=== PATIENT | female | born 1980 | race Caucasian/White ===

== ENCOUNTER 2021-10-20 15:34 | Emergency (ER) | payer BC, OTHER, SELFPAY ==
--- NOTE | 2021-10-20 15:38 | ED.SKABFB ---
HPI - Skin/Abscess/Foreign Bdy General Chief complaint: Skin/Abscess/Foreign Body Stated complaint: poison cyndi or poison oak Time Seen by Provider: 10/20/21 15:38 Source: patient, family and RN notes reviewed Mode of arrival: ambulatory Limitations: no limitations History of Present Illness HPI narrative: patient was out picking grapes yesterday. She feels that she may have gotten into some poison cyndi. complaint: rash Onset (ago): day(s) (1) Location: LUE, RUE, LLE and RLE Severity: moderate Quality: burning and pruritic Pain Consistency: constant Relieving factors: none Exacerbating factors: none Associated symptoms: denies other symptoms Treatments prior to arrival: none Related Data Allergies Allergy/AdvReac Type Severity Reaction Status Date / Time No Known Allergies Allergy Verified 10/20/21 15:42 Review of Systems Review of Systems: All systems reviewed & are unremarkable except as noted in HPI and below PMFSH Past Medical History Medical History (Updated 10/20/21 @ 15:55 by Jayden Head MD) No active medical problems Surgical History Surgical History (Updated 10/20/21 @ 15:55 by Jayden Head MD) History of section Social History Social History (Updated 10/20/21 @ 15:55 by Jayden Head MD) Smoking packs per day: 0.5 Smoking cigarettes per day: 10.0 Smoking status: Current every day smoker Tobacco type: cigarettes Exam Const: General: healthy appearing, no acute distress and alert Nutritional Appearance: well nourished Orientation/consciousness: patient oriented x3 Other: Female nurse in room during examination. HENMT: Head: normal to inspection Ears: external ears normal Eyes: Conjunctivae: conjunctivae normal Pupils: Equal, round and reactive pupils present EOM: EOMs intact bilaterally Neck: Neck: normal visual inspection Resp: Effort & Inspection: normal respiratory effort Auscultation: clear to auscultation bilaterally Cardio: Rate: regular rate Rhythm: regular rhythm GI: Auscultation: normal bowel sounds Back/Spine/Pelvis: Cervical Spine: cervical ROM normal Thoracic/Lumbar Spine: thoraco-lumbar ROM normal Skin: General skin exam: normal color Rashes: rashes noted ( areas on bilateral forearms bilateral upper shins) maculopapular rash bilateral multiple locations arrangement linear, borders sharp, morphology linear and surface erythematous; nontender Neuro: General: patient oriented x3, moves all extremities, no focal motor deficits and CN's II-XI intact bilaterally Speech: normal speech Gait exam (Neuro): Normal gait present Extrem: General: normal to inspection Psych: Mental Status: mental status grossly normal Affect: normal affect Attitude: cooperative Course Vital Signs Vital signs: Vital Signs Temperature 36.1 C L 10/20/21 15:43 Pulse Rate 82 10/20/21 15:43 Respiratory Rate 16 10/20/21 15:43 Blood Pressure 122/80 10/20/21 15:43 Pulse Oximetry 99 10/20/21 15:43 Oxygen Delivery Room Air 10/20/21 15:43 Temperature 36.1 C L 10/20/21 15:43 Pulse Rate 82 10/20/21 15:43 Respiratory Rate 16 10/20/21 15:43 Blood Pressure 122/80 10/20/21 15:43 Pulse Oximetry 99 10/20/21 15:43 Oxygen Delivery Room Air 10/20/21 15:43 Discharge Plan Discharge Clinical Impression: Poison cyndi dermatitis Patient Disposition: Home, Self-Care Condition: Stable Instructions: Poison Cyndi (ED) Additional Instructions: can use Zyrtec [id number] buy the generic. Prescriptions: New triamcinolone acetonide 0.1 % cream 1 applic topical TID 10 Days Qty: 80 0RF Follow-up/Referrals: Yulisa Fair NP [Primary Care Provider] - Time of Disposition: 15:48
[2021-10-20 15:43] VITALS: BP 122/80; PULSE 82; RESP 16; TEMP 36.1; O2SAT 99
== END 2021-10-20 16:00 | disposition home or self-care (01) ==
PROVIDERS: Emergency Provider Emergency Medicine; PCP Nurse Practitioner Family
DX: L23.7 Allergic contact dermatitis due to plants, except food (principal)
CPT/HCPCS: 99283

== ENCOUNTER 2022-07-22 20:17 | Emergency (ER) | payer OTHER, SELFPAY ==
[2022-07-22 20:27] VITALS: BP 108/87; PULSE 99; RESP 20; TEMP 36.6; O2SAT 97
--- NOTE | 2022-07-22 20:33 | ED_ITS ---
HPI - General Adult General Stated complaint: rash Time Seen by Provider: 07/22/22 20:32 History of Present Illness HPI narrative: Healthy 41yo woman presents with 4 days of itchy red rash all over hands, arms, legs, and feet, gradually worsening, since 4 days ago cutting down a bunch of poison micaela, piling it up, and burning it. Related Data Allergies Allergy/AdvReac Type Severity Reaction Status Date / Time No Known Allergies Allergy Verified 07/22/22 20:23 Review of Systems Review of Systems: All systems reviewed & are unremarkable except as noted in HPI and below Constitutional: Constitutional: Denies fever(s) ENT: Denies dysphagia and Denies nasal discharge Cardiovascular: Cardiovascular: Denies dyspnea Exam Narrative: PERRL, EOMI, conjunctivae clear mucous membranes moist, no throat or tongue swelling neck supple cor regular no respiratory distress or stridor skin with symmetric linear dermatitis, worse on extremities, worst on lower legs no peripheral edema or cyanosis Const: General: no acute distress and well nourished HENMT: Head: normocephalic and atraumatic Course Vital Signs Vital signs: Vital Signs Temperature 36.6 C 07/22/22 20:27 Pulse Rate 99 07/22/22 20:27 Respiratory Rate 20 07/22/22 20:27 Blood Pressure 108/87 07/22/22 20:27 Pulse Oximetry 97 07/22/22 20:27 Oxygen Delivery Room Air 07/22/22 20:27 Temperature 36.6 C 07/22/22 20:27 Pulse Rate 99 07/22/22 20:27 Respiratory Rate 20 07/22/22 20:27 Blood Pressure 108/87 07/22/22 20:27 Pulse Oximetry 97 07/22/22 20:27 Oxygen Delivery Room Air 07/22/22 20:27 Medical Decision Making [facility] Narrative Medical decision making narrative: symmetric rash DDx contact dermatitis, not inflammatory/rheumatoid condition, cellulitis, or medication adverse effect. steroid taper prescribed. Vital Signs Vital Signs: Vital Signs Temperature 36.6 C 07/22/22 20:27 Pulse Rate 99 07/22/22 20:27 Respiratory Rate 20 07/22/22 20:27 Blood Pressure 108/87 07/22/22 20:27 Pulse Oximetry 97 07/22/22 20:27 Oxygen Delivery Room Air 07/22/22 20:27 Temperature 36.6 C 07/22/22 20:27 Pulse Rate 99 07/22/22 20:27 Respiratory Rate 20 07/22/22 20:27 Blood Pressure 108/87 07/22/22 20:27 Pulse Oximetry 97 07/22/22 20:27 Oxygen Delivery Room Air 07/22/22 20:27 Discharge Plan Discharge Clinical Impression: Contact dermatitis due to plant Patient Disposition: Home, Self-Care Condition: Stable Additional Instructions: Take the prescribed steroid exactly as directed for 9 days. Prescriptions: New dexamethasone 4 mg tablet 4 mg PO BID Qty: 10 0RF Follow-up/Referrals: Lion Preston DO [Primary Care Provider] - Time of Disposition: 20:44
[2022-07-22 21:25] VITALS: BP 119/79; PULSE 95; RESP 18; TEMP 36.4; O2SAT 99
== END 2022-07-22 21:28 | disposition home or self-care (01) ==
PROVIDERS: Emergency Provider Emergency Medicine; PCP Family Medicine
DX: L25.5 Unspecified contact dermatitis due to plants, except food (principal)
CPT/HCPCS: 96372; 99283; J1100

== ENCOUNTER 2023-07-05 17:47 | Emergency (ER) | payer MEDICAID, SELFPAY ==
--- NOTE | ~2023-07-05 | CT_ITS ---
Non-contrast CT scan of the Abdomen and Pelvis Clinical indication: Flank pain Technique: 2.5 mm axial scans were obtained through the abdomen and pelvis without intravenous or or al contrast. Dose reduction technique was used on this scan by utilizing automated exposure control a nd iterative reconstruction technique. The dose-length product (DLP) was 431.01 mGy-cm. Findings: Images through the lung bases reveal no abnormalities. There is no evidence of renal or ureteral calculi. The kidneys and the ureters are nondilated. The liver, spleen, pancreas, gallbladder, and adrenals appear normal. There is no aortic aneurysm. There is no evidence of bowel obstruction. Normal appendix. Images through the pelvis were performed. There is no evidence of ascites or lymphadenopathy. Urinary bladder unremarkable. No adnexal mass seen. Impression: No significant abnormality seen. Reviewed, dictated and finalized at [facility]. Impression: No significant abnormality seen.
--- NOTE | ~2023-07-05 | XR_ITS ---
EXAMINATION: XR chest 2V Exam Date/Time: 07/05/2023 19:30 CDT HISTORY: fever Comparison: None. RESULT: Lines, tubes, and devices: None. Lungs and pleura: Irregular, somewhat nodular opacity in the right midlung, probably the superior se gment of the right lower lobe. The lungs are otherwise clear. Cardiomediastinal silhouette: Stable. Other: No acute osseous or upper abdominal finding. IMPRESSION: Irregular, nodular right lower lobe opacity, may represent a small focus of infection, scarring, or p ulmonary nodule. If treated for infection, recommend short-term follow-up to determine persistence. O therwise, recommend comparison to outside studies or nonemergent, outpatient low-dose noncontrast CT of the chest for further evaluation Reviewed, dictated and finalized at location [facility]. IMPRESSION: Irregular, nodular right lower lobe opacity, may represent a small focus of inf ection, scarring, or pulmonary nodule. If treated for infection, recommend shor t-term follow-up to determine persistence. Otherwise, recommend comparison to o utside studies or nonemergent, outpatient low-dose noncontrast CT of the chest for further evaluation
[2023-07-05 17:50] VITALS: BP 130/96; PULSE 121; RESP 20; TEMP 37.6; O2SAT 96
--- NOTE | 2023-07-05 19:06 | PC.NURSE ---
assumed care. report received from edith huerta. patient going to bathroom via wheelchair
--- NOTE | 2023-07-05 19:15 | ED.GENADULT ---
HPI - General Adult General Chief complaint: Urogenital-Female Stated complaint: uti symptoms, fever History of Present Illness HPI narrative: 42-year-old white female complains of difficulty but with burning with urination for the last 3 4 days. Associated with lower abdominal pain today which has gotten worse and a fever of 103 this morning. Did not taking for the pain or the fever. Complains of nausea. patient says she hurts all. No cough problem breathing complains of a headache and muscle aches. Denies any diarrhea rash or itching bleeding or bruising weakness or numbness. denies any other complaints. Related Data Allergies Allergy/AdvReac Type Severity Reaction Status Date / Time No Known Allergies Allergy Verified 07/22/22 20:23 Review of Systems Review of Systems: All systems reviewed & are unremarkable except as noted in HPI and below Exam Narrative: White female moderate distress. ? warm to touch tearfulHead:? Normocephalic atraumatic.? Eyes conjunctiva pink sclera nonicteric.? ? Oropharynx is clear with moist mucous membranes no exudates.? Neck is supple no lymphadenopathy nontender full range of motion.? Back is nontender.? Chest nontender.? Lungs are clear without wheezes rales or rhonchi.? Heart has a tachycardic rate withregular rate rhythm without murmurs gallops or rubs.? Abdomen soft and nontender no hepatosplenomegaly or masses no CVA tenderness no abdominal bruits.? Extremities no cyanosis clubbing or edema.? Neurological she is alert and oriented x4 motor and sensory grossly intact.? Skin is warm and dry without lesions. Course Vital Signs Vital signs: Vital Signs Temperature 37.6 C 07/05/23 17:50 Pulse Rate 121 H 07/05/23 17:50 Respiratory Rate 20 07/05/23 17:50 Blood Pressure 130/96 H 07/05/23 17:50 Pulse Oximetry 96 07/05/23 17:50 Oxygen Delivery Room Air 07/05/23 17:50 Temperature 37.0 C 07/05/23 23:03 Pulse Rate 112 H 07/05/23 23:03 Respiratory Rate 18 07/05/23 23:03 Blood Pressure 130/74 07/05/23 23:03 Pulse Oximetry 98 07/05/23 23:03 Oxygen Delivery Room Air 07/05/23 23:03 Medical Decision Making MDM Narrative Medical decision making narrative: ? Patient placed in room: room 1 with her ? History and physical was performed. Chest x-ray per radiologist:Irregular, nodular right lower lobe opacity, may represent a small focus of infection, scarring, or pulmonary nodule. If treated for infection, recommend short-term follow-up to determine persistence. Otherwise, recommend comparison to outside studies or nonemergent, outpatient low-dose noncontrast CT of the chest for further evaluation COVID flu RSV was negative. WBCs 11.2 normal H and H and platelets. Normal coags chemistries were unremarkable sodium 135 calcium 8.2. CRP 8.3 lactic acid 0.8 Urinalysis positive nitrate leukocyte esterase greater than 100 RBCs 4+ bacteria consistent with UTI CT abdomen pelvis without contrast showed: Right possibly passed ureteral stone or UTI, correlate with pyelonephritis recommend left breast mammography and ultrasound for asymmetry of the left lateral breast tissue and probable central breast 2 cm soft tissue nodularity Independent Historian: External Source Review: Differential Dx includes but not limited to: Medications were Reviewed: Medications given:Normal saline 1 L bolus, Tylenol 650 mg p.o., Zofran 4 mg IV, blood cultures x2, Rocephin 1 g, fentanyl 50 mcg, 2 L normal saline. Independently Interpreted by me: Shared decision Making: Social Situation Impacting Patients Care: Discussed with Dr. BELCHER DIAGNOSIS: urinary tract infection , dehydration, right lower lobe pulmonary nodule, possible left breast nodule DISPOSITION: Discharge home CONDITION AT DISCHARGE: stable Vital Signs Vital Signs: Vital Signs Temperature 37.6 C 07/05/23 17:50 Pulse Rate 121 H 07/05/23 17:50 Respiratory Rate 20 05/
--- NOTE | 2023-07-05 19:18 | PC.NURSE ---
ER provider at the bedside
--- NOTE | 2023-07-05 19:30 | PC.NURSE ---
patient being transported to radiology via stretcher
[2023-07-05 19:36] LABS: Bilirubin Urine 1+ (Negative); Blood Urine 2+ (Negative); Glucose Urine UA 1+ (Negative); Ketones Urine Trace (Negative); Leukocyte Esterase Ur 3+ LEU/UL (Negative); Nitrate Urine Positive (Negative); Protein Urine 2+ (Negative)
[2023-07-05 19:45] LABS: Add Urine Microscopic? YES; Appearance Urine Cloudy (Clear); Color Urine Dark Orange (Yellow)
[2023-07-05 19:46] LABS: Bacteria Urine 4+ /hpf; RBC Urine >100 /hpf (0-2); Squamous Epithelial Cell Urine Moderate /hpf (Few); WBC Urine >100 /hpf (0-3)
[2023-07-05] MEDS: fentaNYL CITRATE INJ (*CRX) 100 MCG/2 ML VIAL 50 MCG IV PUSH (20:01)
[2023-07-05] MEDS: ONDANSETRON INJ 4 MG/2 ML VIAL IV PUSH (20:03)
--- NOTE | 2023-07-05 20:06 | PC.NURSE ---
191 report to deanna cade . all questions answered
[2023-07-05 20:09] LABS: Basophils Absolute Auto 0.04 K/mm3 (0.00-0.10); Basophils Percent Auto 0.4 % (0.0-1.0); Eosinophils Absolute Auto 0.02 K/mm3 (0.02-0.50); Eosinophils Percent Auto 0.2 % (1.0-6.0); Hematocrit 39.3 % (35.0-49.0); Hemoglobin 12.8 g/dL (12.0-15.0); Immature Granulocyte Absolute 0.05 K/mm3 (0.00-0.00); Immature Granulocyte Percent A 0.4 % (0.0-0.0); Lymphocytes Absolute Auto 1.53 K/mm3 (1.10-4.50); Lymphocytes Percent Auto 13.7 % (18.0-42.0); Mean Corpuscular HGB Conc 32.6 g/dL (32-36); Mean Corpuscular Hemoglobin 30.8 pg (27.0-31.0); Mean Corpuscular Volume 94.7 fL (78.0-102.0); Mean Platelet Volume 9.8 fl (9.2-11.8); Monocytes Absolute Auto 0.95 K/mm3 (0.10-0.90); Monocytes Percent Auto 8.5 % (2.0-11.0); Neutrophils Absolute Auto 8.57 K/mm3 (1.70-7.20); Neutrophils Percent Auto 76.8 % (50.0-70.0); Platelet Count Result 247 K/mm3 (150-420); Red Blood Count 4.15 M/mm3 (4.20-5.40); Red Cell Distribution Width 12.8 % (11.6-14.4); White Blood Count 11.2 K/mm3 (4.8-10.8)
--- NOTE | 2023-07-05 20:19 | PC.NURSE ---
patient reports that the fentanyl has taken away her pain
[2023-07-05] MEDS: SODIUM CHLORIDE 0.9% IV 2,100 ML/1,000 ML BAG 999 ML IV CONT (20:22)
[2023-07-05 20:26] LABS: INR 1.1; Partial Thromboplastin Time 29.3 Sec (23.9-30.70); Prothrombin Time 11.8 Seconds (9.50-12.1)
--- NOTE | 2023-07-05 20:27 | PC.NURSE ---
appears to be sleeping at this time. family has left the bedside. resp even and unlabored. awaiting test results
[2023-07-05] MEDS: ACETAMINOPHEN 325 MG TABLET 650 MG PO (21:02)
[2023-07-05 21:44] LABS: SARS-CoV-2 RNA PCR Negative (Negative)
[2023-07-05 21:45] LABS: Influenza A QL RT-PCR Negative (Negative); Influenza B QL RT-PCR Negative (Negative); RSV RNA, RT-PCR Negative (Negative)
--- NOTE | 2023-07-05 21:54 | PC.NURSE ---
patient appears to be sleeping. resp even and unlabored. at the bedside. iv fluids continues to infuse to left upper arm. call light in reach.
--- NOTE | 2023-07-05 22:28 | PC.NURSE ---
patient crying, moaning, it hurts so bad. i hurt so bad . patient being taken to bathroom via wheel chair. will notify provider of increased pain
--- NOTE | 2023-07-05 22:43 | PC.NURSE ---
continue to wait on lab results from [facility]. patient and verbalized understanding
[2023-07-05 23:03] VITALS: BP 130/74; PULSE 112; RESP 18; TEMP 37; O2SAT 98
[2023-07-05 23:03] LABS: Lactic Acid Reflex 0.8 mmol/L (0.7-2.0)
[2023-07-05] MEDS: SODIUM CHLORIDE 0.9% IV 1,000 ML 999 ML IV CONT (23:08)
[2023-07-05 23:21] LABS: Alanine Aminotransferase 18 U/L (6-35); Albumin Level 3.7 g/dL (3.5-5.1); Alkaline Phosphatase 52 U/L (38-126); Anion Gap 8 mmol/L (4-12); Aspartate Amino Transferase 29 U/L (14-36); Bilirubin,Total 0.9 mg/dL (0.2-1.3); Blood Urea Nitrogen 17 mg/dL (7-17); Calcium 8.2 mg/dL (8.4-10.2); Carbon Dioxide 22 mmol/L (22-30); Chloride 105 mmol/L (98-107); Estimated CRCL calculation 59 ml/min; Estimated Glomerular Filt Rate 60; Glucose 98 mg/dL (65-110); Osmolality Calculated 281 mOsm/kg (285-295); Potassium 3.8 mmol/L (3.4-5.0); Sodium 135 mmol/L (137-145)
[2023-07-05 23:30] LABS: CRP 8.3 mg/dL (<1.0)
[2023-07-05 23:33] LABS: Pregnancy On Board Control Positive; Urine Pregnancy Test Negative
--- NOTE | 2023-07-05 23:39 | PC.NURSE ---
patient transported to ct via stretcher
--- NOTE | 2023-07-06 00:55 | PC.NURSE ---
patient is resting on stretcher. appears to be sleeping. in the chair also sleeping. resp even and unlabored. call light in reach. awaiting disposition from provider.
--- NOTE | 2023-07-06 01:07 | PC.NURSE ---
patient got up and ambulated to the bathroom and back to room with assistance from .
--- NOTE | 2023-07-06 01:30 | PC.NURSE ---
ER provider at the bedside. patient will be sleeping, relaxed. as soon as patient is touched lightly and her name is said, patient starts crying in pain. then goes back to sleep
--- NOTE | 2023-07-08 13:24 | PC.NURSE ---
FINAL URINE CULTURE RESULTS: ISOLATE 1: GREATER THAN 100,000 CFU/ML OF ESCHERICHIA COLI. PER C&S AND DR HUTTON NO CHANGE IN TX NEEDED.
--- NOTE | 2023-07-12 12:14 | PC.NURSE ---
Final blood culture report, No growth after 5 days, no further action or treatment needed.
== END 2023-07-06 01:58 | disposition home or self-care (01) ==
PROVIDERS: Emergency Provider Emergency Medicine; PCP Nurse Practitioner Family
DX: N30.00 Acute cystitis without hematuria (principal); N63.20 Unspecified lump in the left breast, unspecified quadrant; Z20.822 Contact with and (suspected) exposure to COVID-19
CPT/HCPCS: 36415; 71046; 74176; 80053; 81001; 81025; 83605; 83690; 85025; 85610; 85730; 86140; 87040; 87077; 87086; 87088; 87186; 87637; 96361; 96365; 96375; 99284; A9270; J0696; J2405; J3010; J7030

== ENCOUNTER 2023-07-07 02:14 | Emergency (ER) | payer MEDICAID, SELFPAY ==
[2023-07-07 02:17] VITALS: BP 131/84; PULSE 117; RESP 18; TEMP 37; O2SAT 97
--- NOTE | 2023-07-07 02:33 | ED.GENADULT ---
HPI - General Adult General Chief complaint: Fever Stated complaint: bite Time Seen by Provider: 07/07/23 02:17 History of Present Illness HPI narrative: Mireya is a 42F with a PMH of [place] spotted fever that presented back to the ED with fevers, sweats and aches. She was seen here in the ED yesterday and was diagnosed with a UTI, possibly pyelonephritis and was discharged. She did not cotton picker her antibiotics. She does not believe this is from a UTI as she has had [place] Spotted Fever and it feels like this. She denies chest pain, dyspnea, and even says she is not having much dysuria. She did have a tick bite on her left hip a few days ago. Related Data Allergies Allergy/AdvReac Type Severity Reaction Status Date / Time No Known Allergies Allergy Verified 07/07/23 02:28 Review of Systems Review of Systems: All systems reviewed & are unremarkable except as noted in HPI and below Exam Const: General: cooperative, comfortable, well developed, alert, awake and Physically active Orientation/consciousness: oriented to person, oriented to place and oriented to time Other: mild distress HENMT: Head: normal to inspection, normocephalic and atraumatic Ears: hearing grossly normal bilaterally and external ears normal Face/Nose/Sinus: Normal external nose present Eyes: General: appearance normal, both eyes and all related structures Periorbital: periorbital findings normal Sclera: sclerae normal Pupils: Equal, round and reactive pupils present Neck: Neck: normal visual inspection Chest: Chest palpation & inspection: normal inspection of the chest Resp: Effort & Inspection: normal respiratory effort, able to speak in complete sentences and no respiratory distress Auscultation: clear to auscultation bilaterally Cardio: Jugular venous distension: no JVD Rate: regular rate Rhythm: regular rhythm GI: Inspection: normal to inspection GI Palp: Yes Soft to palpation Auscultation: normal bowel sounds : Other: NO CVA tenderness Skin: General skin exam: normal color and no rashes or lesions noted Other: diaphoretic Neuro: General: oriented to person, oriented to place and oriented to time Cranial nerves: Yes Equal, round and reactive pupils present Extrem: General: normal to inspection Course Course Emergency Course: Ordered labs, CT, antibiotics, fluids and cultures. Will hold off on CT as one was just done yesterday as below. Non-contrast CT scan of the Abdomen and Pelvis Clinical indication: Flank pain Technique:? 2.5 mm axial scans were obtained through the abdomen and pelvis without intravenous or oral contrast. Dose reduction technique was used on this scan by utilizing automated exposure control and iterative reconstruction technique. The dose-length product (DLP) was 431.01 mGy-cm. Findings:? Images through the lung bases reveal no abnormalities. There is no evidence of renal or ureteral calculi. The kidneys and the ureters are nondilated. The liver, spleen, pancreas, gallbladder, and adrenals appear normal.? There is no aortic aneurysm. There is no evidence of bowel obstruction. Normal appendix. Images through the pelvis were performed. There is no evidence of ascites or lymphadenopathy. Urinary bladder unremarkable. No adnexal mass seen. Impression: No significant abnormality seen. Tachycardia improved with fluids. CBC showed an improved WBC count, but her LFTs are higher as is her CRP. UA showed no nitrites this time but did show continued leuk esterase, WBCs and blood. As vitals have remained stable will discharge home with close follow up. She will take the Keflex prescribed yesterday for the UTI and doxycycline for possible tick born illness. She is instructed to make a f/u at her PCP office later this week. Vital Signs Vital signs: Vital Signs Temperature 98.6 F 07/07/23 02:17 Pulse Rate 117 H 07/07/23 02:17 Respiratory Rate 18 07/07/23 02:17 Blood Pressure 131
[2023-07-07 02:46] LABS: Basophils Absolute Auto 0.02 K/mm3 (0.00-0.10); Basophils Percent Auto 0.4 % (0.0-1.0); Eosinophils Absolute Auto 0.08 K/mm3 (0.02-0.50); Eosinophils Percent Auto 1.5 % (1.0-6.0); Hematocrit 37.1 % (35.0-49.0); Hemoglobin 11.9 g/dL (12.0-15.0); Immature Granulocyte Absolute 0.02 K/mm3 (0.00-0.00); Immature Granulocyte Percent A 0.4 % (0.0-0.0); Lymphocytes Absolute Auto 0.96 K/mm3 (1.10-4.50); Lymphocytes Percent Auto 17.6 % (18.0-42.0); Mean Corpuscular HGB Conc 32.1 g/dL (32-36); Mean Corpuscular Hemoglobin 30.7 pg (27.0-31.0); Mean Corpuscular Volume 95.9 fL (78.0-102.0); Mean Platelet Volume 10.1 fl (9.2-11.8); Monocytes Percent Auto 7.3 % (2.0-11.0); Neutrophils Absolute Auto 3.99 K/mm3 (1.70-7.20); Neutrophils Percent Auto 72.8 % (50.0-70.0); Platelet Count Result 200 K/mm3 (150-420); Red Blood Count 3.87 M/mm3 (4.20-5.40); Red Cell Distribution Width 12.7 % (11.6-14.4); White Blood Count 5.5 K/mm3 (4.8-10.8)
[2023-07-07] MEDS: cefTRIAXone 2 GM/NS 100 ML 2 GM/100 ML BAG IVPB (02:46)
[2023-07-07] MEDS: DOXYCYCLINE HYCLATE 100 MG TABLET PO (02:46)
[2023-07-07] MEDS: SODIUM CHLORIDE 0.9% IV 1,000 ML 999 ML IV CONT (02:46)
[2023-07-07 02:51] VITALS: PULSE 100; RESP 18; O2SAT 97
[2023-07-07 03:06] LABS: Alanine Aminotransferase 63 U/L (14-59); Albumin Level 2.5 g/dL (3.4-5.0); Alkaline Phosphatase 58 U/L (46-116); Anion Gap 7 mmol/L (4-12); Aspartate Amino Transferase 62 U/L (15-37); Bilirubin,Total 0.3 mg/dL (0.00-1.00); Blood Urea Nitrogen 10 mg/dL (7-18); CRP 14.3 mg/dL (0.0-0.9); Calcium 8.4 mg/dL (8.5-10.1); Carbon Dioxide 28 mmol/L (21-32); Chloride 102 mmol/L (98-108); Estimated CRCL calculation 70 ml/min; Estimated Glomerular Filt Rate > 60; Glucose 124 mg/dL (70-99); Lactic Acid Reflex 1.5 mmol/L (0.4-2.0); Lipase 35 U/L (16-77); Osmolality Calculated 284 mOsm/kg (285-295); Sodium 137 mmol/L (136-145); Total Protein 6.3 g/dL (6.4-8.2)
--- NOTE | 2023-07-07 03:24 | PC.NURSE ---
PATIENT AWAKE AND ALERT, AMBULATORY TO BATHROOM AT THIS TIME. GIVEN WARM BLANKET PER REQUEST. LIGHTS REMAIN DIMMED FOR COMFORT. CALL LIGHT WITHIN REACH.
[2023-07-07 03:36] LABS: Appearance Urine Clear (Clear); Bilirubin Urine Negative (Negative); Blood Urine 1+ (Negative); Color Urine Yellow (Yellow); Glucose Urine UA Trace (Negative); Ketones Urine Negative (Negative); Leukocyte Esterase Ur 2+ LEU/UL (Negative); Nitrate Urine Negative (Negative); Protein Urine 1+ (Negative); Urobilinogen Urine >=8.0 mg/dL (0.2-1.0)
[2023-07-07 03:40] LABS: Add Urine Microscopic? YES
[2023-07-07 03:41] LABS: Bacteria Urine 3+ /hpf; Budding Yeast Urine Present /hpf; Squamous Epithelial Cell Urine Many /hpf (Few); WBC Urine >75 /hpf (0-3)
[2023-07-07 03:53] VITALS: PULSE 86; RESP 18; O2SAT 96
[2023-07-07 03:56] VITALS: BP 106/69; TEMP 36.2
[2023-07-09 13:44] LABS: Lyme Disease Ab (IgM), Blot NEGATIVE (NEGATIVE); Lyme Disease Ab(IgG), Blot NEGATIVE (NEGATIVE)
== END 2023-07-07 04:16 | disposition home or self-care (01) ==
PROVIDERS: Emergency Provider Family Medicine; PCP Nurse Practitioner Family
DX: N39.0 Urinary tract infection, site not specified (principal); W57.XXXA Bitten or stung by nonvenomous insect and other nonvenomous arthropods, initial encounter
CPT/HCPCS: 36415; 80053; 81001; 83605; 83690; 85025; 86140; 86617; 86666; 86757; 96361; 96365; 99284; A9270; J0696; J7030

== ENCOUNTER 2023-07-16 11:28 | Outpatient (CLI) | payer MEDICAID, SELFPAY ==
[2023-07-16 12:24] LABS: Cholesterol 150 mg/dL (0-200); HDL Direct 34 mg/dL (40-60); LDL Cholesterol Calculated 98 mg/dL (<130); Triglycerides 91 mg/dL (0-150)
== END 2023-07-16 11:29 | disposition home or self-care (01) ==
LOC: CHSLAB 11:29
PROVIDERS: PCP Nurse Practitioner Family; Visit Provider Family Medicine
DX: Z00.00 Encounter for general adult medical examination without abnormal findings (principal)
CPT/HCPCS: 36415; 80061

== ENCOUNTER 2023-07-27 09:53 | Outpatient (CLI) | payer OTHER, SELFPAY ==
--- NOTE | ~2023-07-27 | CT_ITS ---
CT Scan of the Chest without Contrast: Clinical Indication: Pulmonary nodule Technique: Contiguous sections were acquired throughout the chest without intravenous contrast. Dose reduction technique was used on this scan by utilizing automated exposure control and iterative recon struction technique. The dose-length product (DLP) was 161.03 mGy-cm. Findings: There is no evidence of any significant mediastinal, hilar or axillary lymphadenopathy. The mediastin al soft tissues appear normal. There is no evidence of pleural or pericardial effusion. Large calcified right lower lobe granuloma present. 6 mm fissural nodule present along the right anisa r fissure (axial image 66). Images through the upper abdomen reveal no abnormalities. Impression: 6 mm fissural nodule along the right minor fissure. According to Fleischner Society criteria, for a l ow-risk patient, recommend 6-12 month follow-up CT, then consider additional 18-[address] For a hi gh-risk patients, follow-up CT scans at both 6-12 months and 18-24 months are recommended. Reviewed, dictated and finalized at location . Impression: 6 mm fissural nodule along the right minor fissure. According to Fleischner Soc iety criteria, for a low-risk patient, recommend 6-12 month follow-up CT, then consider additional 18-[address] For a high-risk patients, follow-up CT scan s at both 6-12 months and 18-24 months are recommended.
--- NOTE | ~2023-07-27 | MM_ITS ---
EXAMINATION: MM screening jade BI w anitha HISTORY: Screening TECHNIQUE: Craniocaudal and mediolateral oblique 3-D tomosynthesis images were obtained and synthetic 2-D images were generated. CAD analysis was submitted and interpreted. COMPARISON: No prior mammogram is available for comparison at this institution. BREAST PARENCHYMAL COMPOSITION: Not dense: There are scattered areas of fibroglandular density. FINDINGS: There are scattered bilateral breast asymmetries. There is a subareolar mass of the left br east. There are no suspicious calcifications. IMPRESSION: 1. Bilateral breast asymmetries. Left breast subareolar mass. 2. Additional mammographic views and possible breast ultrasound are recommended. BI-RADS Category 0: Incomplete: Needs additional imaging evaluation. Reviewed, dictated and finalized at location [facility]. IMPRESSION: 1. Bilateral breast asymmetries. Left breast subareolar mass. 2. Additional mammographic views and possible breast ultrasound are recommended . BI-RADS Category 0: Incomplete: Needs additional imaging evaluation.
== END 2023-07-27 09:54 | disposition home or self-care (01) ==
LOC: CHSIMG 09:55
PROVIDERS: PCP Family Medicine; Visit Provider Family Medicine
DX: Z12.31 Encounter for screening mammogram for malignant neoplasm of breast (principal); R91.1 Solitary pulmonary nodule; R92.8 Other abnormal and inconclusive findings on diagnostic imaging of breast
CPT/HCPCS: 71250; 77063; 77067

== ENCOUNTER 2023-07-27 09:59 | Outpatient (NON) | payer OTHER, SELFPAY | END 2023-07-27 10:00 | disposition home or self-care (01) | LOC: CHSLAB 10:03 | PROVIDERS: PCP Nurse Practitioner Family; Visit Provider Nurse Practitioner Family | DX: Z12.4 Encounter for screening for malignant neoplasm of cervix (principal); Z11.51 Encounter for screening for human papillomavirus (HPV); Z11.8 Encounter for screening for other infectious and parasitic diseases | CPT/HCPCS: 87491; 87591; 87624; 88175; G0145 ==

== ENCOUNTER 2023-08-07 08:49 | Outpatient (CLI) | payer OTHER, SELFPAY ==
--- NOTE | ~2023-08-07 | MMUS_ITS ---
EXAMINATION: MM diagnostic jade BI w anitha, US breast BI complete HISTORY: Follow-up bilateral breast masses TECHNIQUE: Additional 3-D tomosynthesis images of the breasts were performed and synthetic 2-D images were generated. CAD analysis was submitted and interpreted. High resolution bilateral complete breas t ultrasound was performed. COMPARISON: 07/27/2023 BREAST PARENCHYMAL COMPOSITION: Dense: The breasts are heterogeneously dense, which may obscure small masses FINDINGS: MAMMOGRAPHIC FINDINGS: There is a mass in the subareolar location of the left breast. This mass exhibits layering milk of ca lcium. There is a mass in the anterior superior aspect of the right breast, slightly lateral. ULTRASOUND: Complete bilateral US of all 4 quadrants of the breasts and retroareolar region was reviewed. Right breast: Multiple cysts of the right breast including 4 mm cyst at 3:00 5 mm cyst at 9:00 near t he nipple and a 1.6 cm cyst near the nipple at 11:00. Left breast: At 3:00, 1 cm from the nipple there is a 6 mm cluster of microcysts. At 5:00 in the suba reolar location of the left breast there is a 2.1 cm cyst. No suspicious masses in either breast to s uggest malignancy. IMPRESSION: 1. No evidence for malignancy in either breast. Benign findings. 2. Routine yearly screening mammogram and regular clinical breast examination are recommended. BI-RADS Category 2: Benign finding(s). Reviewed, dictated and finalized at location [facility]. IMPRESSION: 1. No evidence for malignancy in either breast. Benign findings. 2. Routine yearly screening mammogram and regular clinical breast examination a re recommended. BI-RADS Category 2: Benign finding(s).
== END 2023-08-07 08:50 | disposition home or self-care (01) ==
LOC: CHSIMG 08:50
PROVIDERS: PCP Family Medicine; Visit Provider Family Medicine
DX: R92.8 Other abnormal and inconclusive findings on diagnostic imaging of breast (principal)
CPT/HCPCS: 76641; 77062; 77066; G0279

== ENCOUNTER 2024-08-30 17:29 | Emergency (ER) | payer OTHER, SELFPAY ==
[2024-08-30 17:32] VITALS: BP 146/89; PULSE 102; RESP 16; TEMP 36.4; O2SAT 98
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
[2024-08-30] MEDS: dexAMETHasone SOD PHOS INJ 10 MG/ML 1 ML VIAL IM (17:47)
== END 2024-08-30 18:25 | disposition home or self-care (01) ==
LOC: CHSED 17:54
PROVIDERS: Emergency Provider Emergency Medicine; PCP Family Medicine
DX: L24.7 Irritant contact dermatitis due to plants, except food (principal); F17.210 Nicotine dependence, cigarettes, uncomplicated
CPT/HCPCS: 96372; 99284; J1100; J1200

== ENCOUNTER 2024-09-30 20:55 | Emergency (ER) | payer OTHER, SELFPAY ==
--- NOTE | ~2024-09-30 | CT_ITS ---
CLINICAL INDICATION: Fever, back pain, increased frequency and urgency COMPARISON: 07/05/2023. TECHNIQUE: Multiple contiguous axial images of the abdomen and pelvis were performed without the admi nistration of intravenous contrast The dose-length product (DLP) was 492.84 mGy-cm. Automated exposure control and iterative reconstruction technique were employed. FINDINGS/OBSERVATIONS: Visualized lower thorax: The bilateral lung bases are clear. The heart is of normal size, without pericardial effusion. Small hiatal hernia is present. Liver: The liver demonstrates homogeneously decreased attenuation and is not enlarged. Gallbladder and biliary system: The gallbladder is decompressed consistent with recent oral intake. Pancreas: Limited evaluation of the pancreas secondary to the lack of intravenous contrast. Spleen: The spleen demonstrates homogeneous attenuation and is not enlarged. Kidneys: The bilateral kidneys are unremarkable, without hydronephrosis or renal calculi. Adrenal glands: Unremarkable. Gastrointestinal tract: Colonic diverticulosis without surrounding inflammatory change. Appendix: The air-filled appendix is of normal caliber (axial series, images 114 through 127) Vasculature: Unremarkable. Lymph nodes: Limited evaluation without intravenous contrast Pelvic structures: The bladder is decompressed, and otherwise unremarkable. The uterus is anteverted and anteflexed, and otherwise unremarkable. Body wall and musculoskeletal: Small fat-containing umbilical hernia. No significant degenerative disease within the lower thoracic or lumbosacral spine. IMPRESSION: No acute findings within the abdomen or pelvis to account for patient's symptoms. Reviewed, dictated and finalized at location A. IMPRESSION: No acute findings within the abdomen or pelvis to account for patient's symptom s.
[2024-09-30 20:55] VITALS: BP 117/71; PULSE 98; RESP 20; TEMP 37.5; O2SAT 98
[2024-09-30 21:11] LABS: Pregnancy On Board Control Positive
[2024-09-30 21:14] LABS: Glucose Urine UA 1+ (Negative); Leukocyte Esterase Ur 3+ LEU/UL (Negative); Nitrate Urine Positive (Negative); Specific Grav Ur 1.010 (1.010-1.020)
[2024-09-30 21:22] LABS: Add Urine Microscopic? YES; Appearance Urine Cloudy (Clear)
--- NOTE | 2024-09-30 21:39 | ED.FEMALEGU ---
HPI - Female Genitourinary General Chief complaint: Urogenital-Female Stated complaint: UTI symptoms Time Seen by Provider: 09/30/24 21:02 Source: patient Mode of arrival: ambulatory Limitations: no limitations History of Present Illness HPI Narrative: patient is a 44-year-old female with lower abdominal discomfort and burning with urination and decreased urination. She said this feels like a UTI. No concerns for STDs. MD elicited complaint: dysuria, UTI, prolapse and difficulty urinating Pertinent past history: other ( none) Onset (ago): day(s) (2) Location of symptoms: urethra Severity: moderate Female Urogenital Radiation: Non-Radiating Severity scale (1-10): 3 Quality of pain: sharp Consistency: constant Vaginal discharge: yellow and other Vaginal bleeding: none Urinary symptoms: Dysuria, Urgency, Frequency and Difficulty Urinating Exacerbating factors: none Relieving factors: none Associated symptoms: denies other symptoms Treatment prior to arrival: none Sexual activity: Yes Patient : No Possible : unsure if Related Data Allergies Allergy/AdvReac Type Severity Reaction Status Date / Time No Known Allergies Allergy Verified 09/30/24 21:14 Review of Systems Review of Systems: All systems reviewed & are unremarkable except as noted in HPI and below Constitutional: Constitutional: Reports no additional constitutional complaints Eyes: Eyes: Reports no additional eye complaints ENT: Reports system reviewed and no additional complaints, except as documented Cardiovascular: Cardiovascular: Reports no additional cardiovascular complaints Respiratory: Respiratory: Reports no additional respiratory complaints Gastrointestinal: Gastrointestinal: Reports no additional gastrointestinal complaints Genitourinary: Genitourinary: Reports no additional female genitourinary complaints Musculoskeletal: Musculoskeletal: Reports no additional musculoskeletal complaints Integumentary/Breasts: Skin/Breast: Reports system reviewed and no additional complaints, except as docu Neurologic: Reports system reviewed and no additional complaints, except as documented Psychiatric: Psychiatric: Reports no additional psychiatric complaints Endocrine: Endocrine: Reports no additional endocrine complaints Hematologic/Lymphatic: Hematologic/Lymphatic: Reports no additional hematologic/lymphatic complaints Allergic/Immunologic: Allergic/Immunologic: Reports no additional allergic/immunologic complaints PMFSH Past Medical History Medical History No active medical problems Surgical History Surgical History History of section Previous section Family History Family History Father Hypertension Lung abnormality Social History Social History Smoking packs per day: 0.5 Smoking cigarettes per day: 10.0 Smoking status: Current every day smoker Tobacco type: cigarettes Alcohol intake: never Substance use: current Substance use type: marijuana Do You Feel Safe in your Home?: Yes Lack of Transportation: No Lack of Food: Never True Current Housing: I Have Housing Concerned About Future Housing: No Difficulty Paying Gas/Electric Bills: No Difficulty Paying for Meds: No Currently Unemployed: No Education: High School Diploma/GED Exam Const: General: healthy appearing Nutritional Appearance: well nourished Orientation/consciousness: patient oriented x3 HENMT: Head: normal to inspection Ears: external ears normal Face/Nose/Sinus: Normal external nose present Eyes: Conjunctivae: conjunctivae normal Pupils: Equal, round and reactive pupils present EOM: EOMs intact bilaterally Neck: Neck: normal visual inspection Chest: Chest palpation & inspection: normal inspection of the chest Resp: Effort & Inspection: normal respiratory effort and not labored Auscultation: clear to auscultation bilaterally and no crackles Cardio: Rate: regular rate Rhythm: regular rhythm Heart sounds: no murmurs GI: Inspection: distended GI Palp: Yes Soft to palpation, No Tenderness to palpation present (GI) and No Guarding due to palpation present (GI) Auscultation: normal bowel sounds : General: Yes bladder normal to palpation Back/Spine/Pelvis: Back: no CVA tenderness Skin: General skin exam: normal color Rashes: no rashes Wounds: no wounds Neuro: General: patient oriented x3, moves all extremities and no meningeal signs Extrem: General: normal to inspection Psych: Appearance: grossly normal Mental Status: mental status grossly normal Affect: normal affect Course Vital Signs Vital signs: Vital Signs Temperature 37.5 C 09/30/24 20:55 Pulse Rate 98 09/30/24 20:55 Respiratory Rate 20 09/30/24 20:55 Blood Pressure 117/71 09/30/24 20:55 Pulse Oximetry 98 09/30/24 20:55 Oxygen Delivery Room Air 09/30/24 20:55 Temperature 37.3 C 09/30/24 23:15 Pulse Rate 95 09/30/24 23:15 Respiratory Rate 18 09/30/24 23:15 Blood Pressure 112/68 09/30/24 23:15 Pulse Oximetry 98 09/30/24 23:15 Oxygen Delivery Room Air 09/30/24 23:15 MDM - Female Genitourinary MDM Narrative Medical decision making narrative: patient is a 44-year-old female with some urinary tract symptoms here for evaluation. We will do urinalysis and with a few labs for reassurance. Lab Data Attestation: I reviewed the patient's lab results. 09/30/24 21:58 09/30/24 21:58 Labs: Lab Results 09/30/24 09/30/24 Range/Units 21:02 21:58 WBC 4.3 L (4.8-10.8) K/mm3 RBC 4.06 L (4.20-5.40) M/mm3 Hgb 12.7 (12.0-15.0) g/dL Hct 38.8 (35.0-49.0) % MCV 95.6 (78.0-102.0) fL MCH 31.3 H (27.0-31.0) pg MCHC 32.7 (32-36) g/dL RDW 13.2 (11.6-14.4) % Plt Count 244 (150-420) K/mm3 MPV 9.7 (9.2-11.8) fl Immature Gran % (Auto) 0.2 H (0.0-0.0) % Neut % (Auto) 64.7 (50.0-70.0) % Lymph % (Auto) 22.2 (18.0-42.0) % [place] % (Auto) 11.7 H (2.0-11.0) % Eos % (Auto) 0.7 L (1.0-6.0) % Baso % (Auto) 0.5 (0.0-1.0) % Lymph # (Auto) 0.95 L (1.10-4.50) K/mm3 [place] # (Auto) 0.50 (0.10-0.90) K/mm3 Eos # (Auto) 0.03 (0.02-0.50) K/mm3 Baso # (Auto) 0.02 (0.00-0.10) K/mm3 Abs Immat Gran (auto) 0.01 H (0.00-0.00) K/mm3 Absolute Neuts (auto) 2.76 (1.70-7.20) K/mm3 Absolute Nucleated RBC 0.00 (0.00-0.00) K/mm3 Nucleated RBC % 0.0 (0-0.0) % Sodium 138 (137-145) mmol/L Potassium 3.5 (3.4-5.0) mmol/L Chloride 105 (98-107) mmol/L Carbon Dioxide 27 (22-30) mmol/L Anion Gap 6 (4-12) mmol/L BUN 12 D (7-17) mg/dL Creatinine 0.89 (0.7-1.0) mg/dL Estim Creat Clear Calc 65 ml/min Estimated GFR > 60 (59 - ) Glucose 128 H (65-110) mg/dL Calculated Osmolality 287 (285-295) mOsm/kg Lactic Acid 1.4 (0.4-2.0) mmol/L Calcium 8.2 L (8.4-10.2) mg/dL Total Bilirubin 0.6 (0.2-1.3) mg/dL AST 40 H (14-36) U/L ALT 32 (6-35) U/L Alkaline Phosphatase 45 (38-126) U/L Total Protein 6.0 L (6.3-8.2) g/dL Albumin 3.5 (3.5-5.1) g/dL Urine Color [place] A (Yellow) Urine Appearance Cloudy A (Clear) Urine pH 8.5 H (5.0-8.0) Ur Specific [place] 1.010 (1.010-1.020) Urine Protein 3+ H (Negative) Urine Glucose (UA) 1+ H (Negative) Urine Ketones 1+ H (Negative) Ur Blood (Man) Trace-intact H (Negative) Urine Nitrate Positive H (Negative) Urine Bilirubin 1+ H (Negative) Urine Urobilinogen >=8.0 (0.2-1.0) mg/dL Leukocyte Esterase Rfl 3+ H (Negative) TERRY/UL Urine RBC >75 H (0-2) /hpf Urine WBC >100 (0-3) /hpf Urine WBC Clumps Present H (None) /hpf Ur Squamous Epith Cells Many H (Few) /hpf Urine Bacteria 3+ H (None) /hpf Urine Test Negative Imaging Data Attestation: I personally reviewed and interpreted this imaging study as follows: Radiologist's impression: CT scan of the abdomen and pelvis was negative for acute process Discharge Plan Discharge Clinical Impression: Urinary tract infection Qualifiers: Urinary tract infection type: acute cystitis Hematuria presence: with hematuria Qualified Code(s): N30.01 - Acute cystitis with hematuria Patient Disposition: Home Condition: Stable Instructions: Antibiotic Form, Urinary Tract Infection in Women (ED) Patient Language: Greenlandic Prescriptions: New ciprofloxacin HCl [Cipro] 500 mg tablet 500 mg PO BID 7 Days Qty: 14 0RF No Action methylprednisolone [Medrol (Aly)] 4 mg tablets,dose pack See Rx Instructions .ROUTE .COMPLEX Qty: 21 0RF Rx Instructions: orally per package directions hydroxyzine HCl 25 mg tablet 25 mg PO TID PRN (Reason: itching) Qty: 20 0RF Follow-up/Referrals: Lion Preston DO [Primary Care Provider] - Time of Disposition: 22:59
[2024-09-30 22:06] LABS: Hematocrit 38.8 % (35.0-49.0); Hemoglobin 12.7 g/dL (12.0-15.0); Immature Granulocyte Percent A 0.2 % (0.0-0.0); Lymphocytes Absolute Auto 0.95 K/mm3 (1.10-4.50); Mean Corpuscular HGB Conc 32.7 g/dL (32-36); Mean Corpuscular Hemoglobin 31.3 pg (27.0-31.0); Mean Corpuscular Volume 95.6 fL (78.0-102.0); Nucleated Red Blood Cells Absolute Auto 0.00 K/mm3 (0.00-0.00); Nucleated Red Blood Cells Perc 0.0 % (0-0.0); Platelet Count Result 244 K/mm3 (150-420); Red Blood Count 4.06 M/mm3 (4.20-5.40); White Blood Count 4.3 K/mm3 (4.8-10.8)
[2024-09-30 22:19] LABS: Alanine Aminotransferase 32 U/L (6-35); Albumin Level 3.5 g/dL (3.5-5.1); Alkaline Phosphatase 45 U/L (38-126); Anion Gap 6 mmol/L (4-12); Aspartate Amino Transferase 40 U/L (14-36); Bilirubin,Total 0.6 mg/dL (0.2-1.3); Blood Urea Nitrogen 12 mg/dL (7-17); Calcium 8.2 mg/dL (8.4-10.2); Carbon Dioxide 27 mmol/L (22-30); Chloride 105 mmol/L (98-107); Estimated CRCL calculation 65 ml/min; Estimated Glomerular Filt Rate > 60; Glucose 128 mg/dL (65-110); Osmolality Calculated 287 mOsm/kg (285-295); Potassium 3.5 mmol/L (3.4-5.0); Sodium 138 mmol/L (137-145); Total Protein 6.0 g/dL (6.3-8.2)
[2024-09-30] MEDS: cefTRIAXone 1 GM, LIDOCAINE 1% LOCAL INJ 2.1 ML IM (23:11)
[2024-09-30 23:15] VITALS: BP 112/68; PULSE 95; RESP 18; TEMP 37.3; O2SAT 98
--- NOTE | 2024-10-04 13:24 | PC.NURSE ---
preliminary blood cultures x2 reviewed. no growth in 24 hours
--- NOTE | 2024-10-05 13:31 | PC.NURSE ---
blood preliminary, no growth
--- NOTE | 2024-10-08 13:53 | PC.NURSE ---
final blood cultures x2 reviewed. no growth in 5 days
== END 2024-09-30 23:15 | disposition home or self-care (01) ==
PROVIDERS: Emergency Provider Emergency Medicine; PCP Family Medicine
DX: N30.01 Acute cystitis with hematuria (principal); F17.210 Nicotine dependence, cigarettes, uncomplicated
CPT/HCPCS: 36415; 74176; 80053; 81001; 81025; 83605; 85025; 87040; 96372; 99283; J0696; J2003

== ENCOUNTER → 2024-12-18 01:46 | Emergency (ER) | payer SELFPAY ==
--- NOTE | 2024-12-18 01:07 | ED_ITS ---
HPI - Back Pain/Injury General Chief Complaint: Back Pain/Injury Stated Complaint: back pain Time Seen by Provider: 12/18/24 01:02 EGG GRADER Source: patient and family Mode of arrival: ambulatory Limitations: no limitations History of Present Illness HPI Narrative: This this is a 44-year-old female with no significant past medical history were up with a back spasm proximally the T12 right paravertebral tenderness with palpation with some muscle spasm with no shortness of breath no fever chills no injuries no radiation of her pain no neurological deficits no chest pain no abdominal pain no dysuria. MD elicited complaint: back pain Onset (ago): hour(s) Timing: constant Severity: severe Pain scale (0-10): 8 Quality: aching and spasming Exacerbating factors: movement and sitting upright Relieving factors: immobilization Related Data Allergies Allergy/AdvReac Type Severity Reaction Status Date / Time No Known Allergies Allergy Verified 09/30/24 21:14 Review of Systems Review of Systems: All systems reviewed & are unremarkable except as noted in HPI and below PMFSH Past Medical History Medical History (Reviewed 12/18/24 @ 01:08 EGG GRADER by Primo Garcia MD) No active medical problems Surgical History Surgical History (Reviewed 12/18/24 @ 01:08 EGG GRADER by Primo Garcia MD) History of section Previous section Family History Family History (Reviewed 12/18/24 @ 01:08 EGG GRADER by Primo Garcia MD) Father Hypertension Lung abnormality Social History Social History (Reviewed 12/18/24 @ 01:08 EGG GRADER by Primo Garcia MD) Smoking packs per day: 0.5 Smoking cigarettes per day: 10.0 Smoking status: Current every day smoker Tobacco type: cigarettes Alcohol intake: never Substance use: current Substance use type: marijuana Do You Feel Safe in your Home?: Yes Lack of Transportation: No Lack of Food: Never True Current Housing: I Have Housing Concerned About Future Housing: No Difficulty Paying Gas/Electric Bills: No Difficulty Paying for Meds: No Currently Unemployed: No Education: High School Diploma/GED Exam Const: General: healthy appearing and no acute distress Nutritional Appearance: well nourished Orientation/consciousness: patient oriented x3 Chest: Chest palpation & inspection: normal inspection of the chest Resp: Effort & Inspection: normal respiratory effort Auscultation: clear to auscultation bilaterally Cardio: Rate: regular rate Rhythm: regular rhythm GI: GI Palp: Yes Soft to palpation Auscultation: normal bowel sounds Back/Spine/Pelvis: Back: no CVA tenderness Neuro: General: patient oriented x3 and moves all extremities Extrem: Other: Has low back pain with some paravertebral tenderness with no sciatic radiculopathy with a muscular pain with palpation Course Course Emergency Course: Medical decision making narrative: The patient was evaluated by myself in the emergency department. History obtained from the patient was independent historian physical exam performed witnessed by tach. Patient received 60mg IM Toradol 60mg muscle relaxant. After reassessment patient felt pain level has marginally improved. Repeat assessment: Patient doing well on repeat exam in no acute distress Symptoms improved since arrival to the ED Vitals are stable Patient agrees with discussion after shared medical decision-making and agrees with discharge All questions answered to the patient's satisfaction Advised follow-up with primary in the next 3 to 5 days. Critical Care Time Critical Care Time Critical Care Time: No Discharge Plan Discharge Clinical Impression: Muscle spasm Strain of lumbar region Qualifiers: Encounter type: initial encounter Qualified Code(s): S39.012A - Strain of muscle, fascia and tendon of lower back, initial encounter Patient Disposition: Home Condition: Stable Instructions: Antibiotic Form, Back Pain (ED), Thoracic Back Strain (ED) Additional Instructions: Advised patient to take medication as prescribed and to follow with primary within the next 3 to 5 days for further evaluation and treatment. Patient Language: Niuean Prescriptions: New oxycodone-acetaminophen [Percocet] 5-325 mg tablet 1 tablet PO Q6H PRN (Reason: pain) Qty: 20 0RF cyclobenzaprine 5 mg tablet 5 mg PO TID Qty: 20 0RF No Action methylprednisolone [Medrol (Aly)] 4 mg tablets,dose pack See Rx Instructions .ROUTE .COMPLEX Qty: 21 0RF Rx Instructions: orally per package directions hydroxyzine HCl 25 mg tablet 25 mg PO TID PRN (Reason: itching) Qty: 20 0RF ciprofloxacin HCl [Cipro] 500 mg tablet 500 mg PO BID 7 Days Qty: 14 0RF Follow-up/Referrals: Lion Preston DO [Primary Care Provider, [facility]] Time of Disposition: 01:14
[2024-12-18] MEDS: KETOROLAC (*BKC) 60 MG/2 ML VIAL IM (01:12)
[2024-12-18] MEDS: ORPHENADRINE CITRATE 30 MG/ML 2 ML VIAL 60 MG IM (01:12)
[2024-12-18 01:46] VITALS: BP 138/78; PULSE 90; RESP 18; O2SAT 97
[2024-12-18 01:56] VITALS: BP 150/98; PULSE 97; RESP 18; TEMP 36.4; O2SAT 98
== END | disposition home or self-care (01) ==
LOC: CHSED 01:24
PROVIDERS: Emergency Provider Emergency Medicine; PCP Family Medicine
DX: S39.012A Strain of muscle, fascia and tendon of lower back, initial encounter (principal); M62.830 Muscle spasm of back; F17.210 Nicotine dependence, cigarettes, uncomplicated; X58.XXXA Exposure to other specified factors, initial encounter
CPT/HCPCS: 96372; 99284